=== PATIENT | male | born 1965 | race Two or more races ===

== ENCOUNTER 2017-03-28 09:51 | Day surgery (SDC) | payer BC ==
[2017-03-26 10:35] VITALS: BMI 25.0
[~2017-03-28 09:51] MED LIST: LACTATED RINGERS 1,000 ML IV SCH; LIDOCAINE 1% 20 ML VIAL (10MG/ML) FOR IV START INTRADERMA PRN
[2017-03-28 10:11] VITALS: RESP 18; TEMP 98
[2017-03-28] MEDS ORDERED: LACTATED RINGERS 1,000 ML IV ONE (10:17)
[2017-03-28] MEDS ORDERED: PROPOFOL 10 MG/ML 20 ML VIAL IV ONE (10:54)
[2017-03-28] MEDS ORDERED: fentaNYL (PF) 50 MCG/ML 2 ML AMP ONE (10:54)
[2017-03-28] MEDS ORDERED: MIDAZOLAM 2 MG/2 ML VIAL ONE (10:54)
--- NOTE | 2017-03-28 11:20 | P.GSHP ---
History of Present Illness H&P Date: 03/28/17 Chief Complaint: Screening colonoscopy This a 52-year-old male who presents for screening colonoscopy. He denies a significant GI complaints. He's never had a colonoscopy before. Past Medical History Past Medical History: No Reported History History of Any Multi-Drug Resistant Organisms: None Reported Additional Past Surgical History / Comment(s): WISDOM TEETH REMOVED UNDER ANESTHESIA. LT ARM REPAIR LACERATION Past Anesthesia/Blood Transfusion Reactions: No Reported Reaction Smoking Status: Current every day smoker - Past Family History Mother Family Medical History: Cancer Brother(s) Family Medical History: Cancer Medications and Allergies Home Medications Medication Instructions Recorded Confirmed Type No Known Home Medications [No 03/26/17 03/26/17 History Known Home Medications] Allergies Allergy/AdvReac Type Severity Reaction Status Date / Time mercury (elemental) AdvReac Confusion Verified 03/26/17 10:36 Surgical - Exam Vital Signs Temp Pulse Resp BP Pulse Ox 98.0 F 83 18 121/83 97 03/28/17 10:10 03/28/17 10:10 03/28/17 10:10 03/28/17 10:10 03/28/17 10:10 - General well developed, no distress - Eyes PERRL - ENT normal pinna - Neck no masses - Respiratory normal expansion - Cardiovascular Rhythm: regular - Abdomen Abdomen: soft, non tender Assessment and Plan Plan: GI bleed. We'll perform colonoscopy.
--- NOTE | 2017-03-28 11:36 | P.OP ---
Date of Procedure: 03/28/17 Preoperative Diagnosis: Screening colonoscopy Postoperative Diagnosis: Diverticulosis Transverse colon polyp Rectal polyp Procedure(s) Performed: Colonoscopy Implants: Anesthesia: MAC Surgeon: Elvis Gilbert Pathology: other (Transverse colon polyp, rectal polyp) Condition: stable Disposition: PACU Indications for Procedure: Operative Findings: Description of Procedure: The patient's placed on the operative table in the supine position. He IV sedation. Digital rectal exam was performed which revealed no abnormalities. The flexible colonoscope was then placed patient anus passed throughout the entire colon. The ileocecal valve was visualized. The cecum, and descending colon appeared normal. In the transverse colon there was a small sessile polyp and this was removed the forcep. Scope was withdrawn remainder the entrance colon appeared normal. In the descending and sigmoid colon there were diverticular changes. In the rectum there was a polyp was removed with the snare. The scope was withdrawn for patient.
[2017-03-28 12:02] VITALS: BP 107/69; PULSE 69
== END 2017-03-28 12:21 | disposition home or self-care (01) ==
LOC: ORWHC2ENDO 09:51
PROVIDERS: ATTEND Surgery
DX: Z12.11 Encounter for screening for malignant neoplasm of colon (principal); D12.3 Benign neoplasm of transverse colon; D12.8 Benign neoplasm of rectum; K57.30 Diverticulosis of large intestine without perforation or abscess without bleeding; F17.200 Nicotine dependence, unspecified, uncomplicated; Z91.09 Other allergy status, other than to drugs and biological substances
CPT/HCPCS: 88305; 45380; 45385; J2250; J3010; J2704

== ENCOUNTER → 2018-04-23 | Outpatient (CLI) | payer BC ==
--- NOTE | 2018-04-23 13:37 | CT ---
EXAMINATION TYPE: CT sinus wo con DATE OF EXAM: 04/23/2018 COMPARISON: None HISTORY: Chronic sinusitis CT DLP: 589 mGycm. Automated Exposure Control for Dose Reduction was Utilized. TECHNIQUE: CT scan of the sinuses is performed without contrast, axial images are obtained, coronal r eformatted images are also reviewed. FINDINGS: The paranasal sinuses including the frontal, ethmoid, sphenoid, and maxillary sinuses bila terally are well-aerated with minimal mucosal thickening involving ethmoid air cells. The ostiomeata l complex is patent bilaterally on the coronal images. Visualized portion of mastoid air cells show no abnormal opacification. The globes are intact bilate rally. Nasal septal deviation noted. Mastoid air cells have a normal appearance. IMPRESSION: 1. Minimal ethmoidal chronic sinusitis. 2. There is mild induration of the anterior soft tissues anterior the maxillary sinuses correlate for mild soft tissue edema.
== END | disposition home or self-care (01) ==
LOC: RADCTMAIN 12:38
PROVIDERS: ATTEND Otolaryngology
DX: J32.9 Chronic sinusitis, unspecified (principal)
CPT/HCPCS: 70486

== ENCOUNTER → 2020-07-26 | Outpatient (CLI) | payer BC ==
--- NOTE | 2020-07-26 12:11 | XR ---
EXAMINATION TYPE: XR chest 2V DATE OF EXAM: 07/26/2020 COMPARISON: NONE HISTORY: Cough, right lower rib pain TECHNIQUE: Frontal and lateral views of the chest are obtained. FINDINGS: There is biapical pleural thickening. Calcified mediastinal nodes are present, is calcific ation left midline, left upper lobe likely due to old granulomatous disease. Cardiac mediastinal silh ouette shows an otherwise normal appearance. There is no evident airspace disease, pneumothorax, or p leural effusion. Prominent lung volume may be indicative of underlying COPD. Mild wedge compression d eformity noted at a lower thoracic vertebral body IMPRESSION: Old granulomatous disease.
== END | disposition home or self-care (01) ==
LOC: RADXRMAIN 10:01
PROVIDERS: ATTEND Family Medicine
DX: D71 Functional disorders of polymorphonuclear neutrophils (principal); R50.9 Fever, unspecified
CPT/HCPCS: 71046